=== PATIENT | female | born 1990 | race Hispanic/Latino ===

== ENCOUNTER 2021-11-21 13:55 | Outpatient (CLI) | payer OTHER | END 2021-11-21 13:56 | disposition home or self-care (01) | LOC: CSHULT 13:55 | PROVIDERS: ATTEND Family Medicine | DX: Z34.82 Encounter for supervision of other normal pregnancy, second trimester (principal); Z3A.29 29 weeks gestation of pregnancy | CPT/HCPCS: 76805 ==

== ENCOUNTER 2022-01-24 07:54 | Outpatient (CLI) | payer OTHER ==
[2022-01-24 19:03] LABS: SARS-CoV-2 PCR by NAA Not Detected (NotDetected)
== END 2022-01-24 07:55 | disposition home or self-care (01) ==
LOC: CSHLAB 07:54
PROVIDERS: ATTEND Family Medicine
DX: Z20.822 Contact with and (suspected) exposure to COVID-19 (principal)
CPT/HCPCS: U0003; U0005

== ENCOUNTER 2022-09-16 11:15 | Emergency (ER) | payer MEDICAID ==
[2022-09-16] MEDS ORDERED: Acetaminophen 500 MG TAB ONE (11:41)
[2022-09-16 12:33] LABS: SARS-CoV-2 NAA Rapid Test Not Detected (NotDetected)
== END 2022-09-16 13:09 | disposition home or self-care (01) ==
LOC: CSHERS 11:15
DX: J03.00 Acute streptococcal tonsillitis, unspecified (principal); Z20.822 Contact with and (suspected) exposure to COVID-19
CPT/HCPCS: 87430; 99283